=== PATIENT | female | born 1975 | race Caucasian/White ===

== ENCOUNTER 2016-10-05 15:24 | Emergency (ER) | payer BC, MEDICAID ==
[2014-09-09 14:21] VITALS: BMI 47.3
[~2016-10-05 15:24] MED LIST: NORCO 7.5/325 T1 TA1 PO
[2016-10-05 16:31] LABS: BASOPHILS 0.5 % (0-2); EOSINOPHILS 6.9 % (0-7); HEMOGLOBIN 12.4 g/dL (12-16); LYMPHOCYTES 26.2 % (15-50); MCH 28.5 pg (26.0-34.0); MCHC 32.6 g/dL (31.0-37.0); MCV 87.4 fL (80.0-100.0); MEAN PLATELET VOLUME 10.8 fL (7.4-10.4); MONOCYTES 5.8 % (2-11); NEUTROPHILS 60.6 % (40-80); PLATELET COUNT 226 10x3/uL (130-400); RBC 4.35 10x6/uL (4.00-5.40); RDW 15.9 % (11.5-14.5); WBC 5.5 10x3/uL (4.8-10.8)
[2016-10-05 16:33] LABS: APPEARANCE HAZY (CLEAR); BILIRUBIN NEGATIVE (NEGATIVE); COLOR YELLOW (YELLOW); GLUCOSE NEGATIVE (NEGATIVE); KETONE NEGATIVE (NEGATIVE); LEUKOCYTE ESTERASE NEGATIVE (NEGATIVE); NITRITE NEGATIVE (NEGATIVE); PROTEIN NEGATIVE (NEGATIVE); UROBILINOGEN NORMAL (NORMAL)
[2016-10-05 16:40] LABS: ALBUMIN 3.2 g/dL (3.4-5.0); ANION GAP 11.4 mmol/L (8-16); BILIRUBIN - TOTAL 0.43 mg/dL (0.2-1.3); C-REACTIVE PROTEIN 4.6 mg/dL (0.0-0.9); CALCIUM 8.4 mg/dL (8.5-10.1); CARBON DIOXIDE 26.2 mmol/L (21.0-32.0); CREATININE - SERUM 0.9 mg/dL (0.6-1.3); POTASSIUM - SERUM 3.6 mmol/L (3.5-5.1); PROTEIN - SERUM 7.3 g/dL (6.4-8.2)
[2016-10-05 17:47] LABS: ERYTHROCYTE SEDIMENTATION RATE 17 mm/hr (0-20)
== END 2016-10-05 18:21 | disposition home or self-care (01) ==
LOC: D.ER 15:24
PROVIDERS: Nurse Practitioner Family
DX: G44.209 Tension-type headache, unspecified, not intractable (principal); M54.5 Low back pain; E11.9 Type 2 diabetes mellitus without complications

== ENCOUNTER 2017-01-19 18:23 | Emergency (ER) | payer BC, MEDICAID ==
[2014-09-09 14:21] VITALS: BMI 47.3
== END 2017-01-19 20:20 | disposition home or self-care (01) ==
LOC: D.ER 18:23
DX: S82.832A Other fracture of upper and lower end of left fibula, initial encounter for closed fracture (principal); W19.XXXA Unspecified fall, initial encounter; Y93.89 Activity, other specified; Y92.019 Unspecified place in single-family (private) house as the place of occurrence of the external cause; E11.9 Type 2 diabetes mellitus without complications; I10 Essential (primary) hypertension

== ENCOUNTER → 2017-07-28 10:51 | Outpatient (CLI) | payer MEDICAID ==
[2014-09-09 14:21] VITALS: BMI 47.3
[~2017-07-28 10:51] MED LIST changes: +GLUCOPHAGE500 MG PO; +LEXAPRO20 MG PO; +MELOXICAM TAB 15M; +VALIUM5 MG PO
== END | disposition home or self-care (01) ==
LOC: D.MRI 10:51
DX: M67.962 Unspecified disorder of synovium and tendon, left lower leg (principal)

== ENCOUNTER 2017-08-08 06:20 | Day surgery (SDC) | payer MEDICAID ==
[2017-08-07 16:06] LABS: HEMATOCRIT 34.9 % (36.0-48.0); HEMOGLOBIN 11.4 g/dL (12-16); MCH 27.9 pg (26.0-34.0); MCHC 32.7 g/dL (31.0-37.0); MCV 85.5 fL (80.0-100.0); MEAN PLATELET VOLUME 9.9 fL (7.4-10.4); RBC 4.08 10x6/uL (4.00-5.40); RDW 15.5 % (11.5-14.5); WBC 7.2 10x3/uL (4.8-10.8)
[2017-08-07 16:28] LABS: CALC OSMOLALITY 279 mosm/kg (275-300); CALCIUM 8.9 mg/dL (8.5-10.1); CARBON DIOXIDE 27.8 mmol/L (21.0-32.0); CHLORIDE - SERUM 104 mmol/L (98-107); CREATININE - SERUM 0.8 mg/dL (0.6-1.3); GLUCOSE 128 mg/dL (74-106); POTASSIUM - SERUM 3.5 mmol/L (3.5-5.1); SODIUM 139 mmol/L (136-145); UREA NITROGEN 13 mg/dL (7-18); eGFR NON AFRICAN AMERICAN 84 mL/min (90-120)
--- NOTE | ~2017-08-08 | OP ---
PATIENT NAME: BETTYE GOMEZ MEDICAL RECORD: [id number] [facility] ADMISSION DATE: SURGEON: RADHA SPEARS MD DATE OF OPERATION: 08/08/2017 ANESTHESIOLOGIST: Dr. Smith SURGEON: Dr. Spears [employer]: None. PREOPERATIVE DIAGNOSIS: Left ankle OCD lesion. POSTOPERATIVE DIAGNOSIS: Left ankle OCD lesion, and anterolateral ankle impingement due to scar tissue and synovitis. There was also medial scar tissue impinging on the medial dome of the talus. PROCEDURE PERFORMED: Left ankle arthroscopy with arthroscopic partial synovectomy, arthroscopic debridement of the anteromedial and anterolateral scar tissue, and debridement of lateral talus OCD with microfracture and application of Arthrex BioCartilage and DuraSeal sealant over the lesion. ANTIBIOTICS: 1 gram Ancef. ESTIMATED BLOOD LOSS: Minimal. FINDINGS: See body of report. COMPLICATIONS: None. PATHOLOGY: None. IMPLANTS: None. DRAINS: None. POSTOPERATIVE DIAGNOSIS: Stable to the recovery room. Needle, sponge, and instrument counts were correct. INDICATIONS: The patient is a 41-year-old female who presented to the outpatient clinic with a complaint of chronic left ankle pain following multiple ankle sprain injuries, having failed conservative treatment, MRI was done and revealed an anterolateral left ankle talus OCD lesion, which was unstable. Also, noted was an ankle effusion and synovitis. The patient was counseled that having failed conservative treatment and been found to have pathology associated with chronic ankle pain due to ankle sprains. A recommendation for arthroscopic left ankle surgery with debridement of the unstable lateral talus OCD lesion, microfracture, and application of biologics as well as all other indicated procedures included synovectomy and scar tissue debridement were discussed with the patient. Risks, benefits, alternatives, and complications of surgery as well as the benefits and complications of the alternatives were discussed. Questions were answered and informed consent was obtained from the patient to proceed with the proposed left ankle arthroscopic treatment of the ankle problem. Informed consent was placed in the chart. OPERATIVE REPORT [id number] BETTYE GOMEZ PROCEDURE IN DETAIL: The patient was seen in the preoperative area and was taken back to the operating room and placed supine on the operative table. General anesthesia was provided by the anesthesia department after a block was placed in the preoperative area. The left ankle was then elevated, prepped and draped in the usual sterile fashion. The Trimano was used along with Kerlix in order to apply traction to the left ankle. The ankle was insufflated with 20 cc of saline using an 18-gauge needle after marking off the skin for planned anteromedial and anterolateral portal approaches to the ankle joint. The lateral portal was made first. This was done by using an 11 blade to make an incision just on skin with blunt dissection using a clamp down to the ankle capsule. Using a blunt trocar the arthroscopic portal was inserted into the anterolateral ankle joint without complication. The camera was then inserted and the joint was inspected. There was hypertrophic synovium, which was red and inflamed. This was noted along the anterior aspect of the ankle joint from medial to lateral. Also, noted was the unstable cartilaginous lesion in the anterior aspect of the lateral talar dome. Also, noted was scar tissue overlying the ATFL ligament anterolaterally as well as anteromedially overlying the superficial deltoid ligament. Using the arthroscope to observe the anteromedial portal insertion, a spinal needle was inserted into an appropriate position. An incision was made in skin, blunt dissection with a clamp and a blunt trocar was then inserted followed by the shaver. The shaver was used to perform a synovectomy and to debride the scar tissue anteromedially and anterolaterally. Following this, the unstable cartilaginous lip was excised using a shaver down to a stable rim. The base of the OCD lesion was then debrided down to stable subchondral bone. Following this microfracture was performed using a pick until bleeding bone and marrow was visible. The arthroscopic fluid was then stopped and the ankle was drained until it was dry with visualization of the lesion itself. While this was going on, the BioCartilage 1 cc was reconstituted with the patient's blood on the back table per standard procedure. This was then inserted into the anterolateral aspect of the ankle joint and the mixture was applied to the OCD lesion under direct vision. Following this, DuraSeal sealant system was applied over this as a fibrin glue. The instruments were then removed from the joint. The incisions were cleansed with irrigant and were closed with 4-0 nylon. The ankle was then placed in neutral position with an AO splint applied to the extremity after a sterile dressing consisting of Adaptic, 4 x 4s, and Tegaderm had been applied. The patient was then awakened in a stable condition and brought to the recovery room. TRANSINT:[id number] Voice Confirmation ID: [id number] DOCUMENT ID: [id number] RADHA SPEARS MD at 2019 CC: [id number] DICTATION DATE: 08/08/17 1454 AS400 OPERATOR: 08/08/17 1531 [facility] [place] 08/08/17 [place] [id number] [place] [id number]
[2017-08-08 08:28] VITALS: BP 136/83; BMI 39.9
== END 2017-08-08 16:00 | disposition home or self-care (01) ==
LOC: D.OPS 06:20 → D.PAN 08:30 → D.OPS 08:30
PROVIDERS: Anesthesiology
DX: M93.272 Osteochondritis dissecans, left ankle and joints of left foot (principal); E11.9 Type 2 diabetes mellitus without complications; E66.9 Obesity, unspecified; Z68.39 Body mass index [BMI] 39.0-39.9, adult; Z01.812 Encounter for preprocedural laboratory examination

== ENCOUNTER 2017-11-03 16:59 | Emergency (ER) | payer MEDICAID ==
[~2017-11-03] VITALS: Ht 175.3 cm; Wt 127.3 kg
[2017-11-03 17:10] VITALS: Ht 175.3 cm; Wt 127.3 kg
[2017-11-03 18:48] LABS: APPEARANCE HAZY (CLEAR); BILIRUBIN NEGATIVE (NEGATIVE); COLOR YELLOW (YELLOW); GLUCOSE NEGATIVE (NEGATIVE); KETONE NEGATIVE (NEGATIVE); NITRITE NEGATIVE (NEGATIVE); PROTEIN TRACE mg/dL (NEGATIVE); UROBILINOGEN NORMAL (NORMAL)
[2017-11-03 18:50] LABS: BACTERIA FEW /hpf (NONE SEEN); EPITHELIAL CELLS OCC /hpf (0-5); RED CELLS - URINE 0-5 /hpf (0-5); WHITE CELLS - URINE 0-5 /hpf (0-5)
[2017-11-03] MEDS ORDERED: ZPAK PO (18:53)
[2017-11-03 19:51] VITALS: BP 149/77
== END 2017-11-03 19:51 | disposition home or self-care (01) ==
LOC: D.ER 16:59
PROVIDERS: Family Medicine
DX: J40 Bronchitis, not specified as acute or chronic (principal); R09.89 Other specified symptoms and signs involving the circulatory and respiratory systems; E11.9 Type 2 diabetes mellitus without complications; I10 Essential (primary) hypertension